=== PATIENT | female | born 1990 | race Caucasian/White ===

== ENCOUNTER 2017-01-25 12:45 | Emergency (ER) | payer SELFPAY ==
[~2017-01-25] VITALS: Ht 167.6 cm; Wt 65.9 kg
[~2017-01-25 12:45] MED LIST: BIRTH CONTRO; XANA1TAB2 PO
[2017-01-25] MEDS ORDERED: SODIUM CHLOR 0.9% 1000 ML INJ 1,000 ML IV ONE (13:01)
[2017-01-25 13:04] VITALS: BP 106/71; PULSE 146; RESP 29; TEMP 98.9; O2SAT 95
[2017-01-25] MEDS ORDERED: LORazepam 2 MG/ML VIAL IVP ONE (13:15)
[2017-01-25] MEDS ORDERED: SODIUM CHLORIDE 0.9% FLUSH 10 ML FLUSH IVF PRN (13:15)
--- NOTE | 2017-01-25 13:20 | PD ---
HPI Chief Complaint: Alcohol/Drug Intoxication Time Seen by Provider: 13:01 Travel History International Travel<30 days: No Contact w/Intl Traveler<30days: No Traveled to known affect area: No History of Present Illness HPI 26-year-old female with history of substance abuse, presents to the ER today brought in by EMS because she found by bystanders, agitated, disoriented, and they called EMS. She admits that she has been drinking alcohol, taking marijuana, and from a friend. She denies other issues or ingestions. Modifying Factors: None Associated Signs & Symptoms: Agitation, disorientation, substance use, alcohol use Risk Factors: History of substance use PFSH Past Medical History Anemia: Yes ?: Unknown Past Surgical History Tonsillectomy: Yes Social History Alcohol Use: Yes Tobacco Use: Yes Substance Use: Yes (marijuana,cocaine) Allergies-Medications (Allergen,Severity, Reaction): Coded Allergies: No Known Allergies (Unverified , 12/23/16) Reported Meds & Prescriptions Reported Meds & Active Scripts Active Reported [ contro;] Xanax (Alprazolam) 1 Mg Tab 1 Mg PO BID PRN Review of Systems ROS Limitations: Intoxication (agitated), Uncooperative Physical Exam Narrative GENERAL: Well-developed young white female patient who is agitated, mildly disoriented, spitting at officers. Awake, alert and answering questions. SKIN: Focused skin assessment warm/dry. HEAD: Atraumatic. Normocephalic. EYES: Pupils equal and round. No scleral icterus. No injection or drainage. ENT: No nasal bleeding or discharge. Mucous membranes pink and moist. NECK: Trachea midline. No JVD. CARDIOVASCULAR: Regular rate and rhythm. No murmur appreciated. RESPIRATORY: No accessory muscle use. Clear to auscultation. Breath sounds equal bilaterally. GASTROINTESTINAL: Abdomen soft, non-tender, nondistended. Hepatic and splenic margins not palpable. MUSCULOSKELETAL: No obvious deformities. No clubbing. No cyanosis. No edema. NEUROLOGICAL: Awake and alert. No obvious cranial nerve deficits. Motor grossly within normal limits. Normal speech. PSYCHIATRIC: Appropriate mood and affect; poor insight and judgment control. Data Data Last Documented VS Vital Signs Date Time Temp Pulse Resp B/P Pulse Ox O2 Delivery O2 Flow Rate FiO2 01/25/17 14:22 80 18 98 Room Air 01/25/17 14:21 98.3 108/64 Orders Complete Blood Count With Diff (01/25/17 13:01) Comprehensive Metabolic Panel (01/25/17 13:01) Urinalysis - C+S If Indicated (01/25/17 13:01) Iv Access Insert/Monitor (01/25/17 13:01) Cath For Specimen (01/25/17 13:01) Ecg Monitoring (01/25/17 13:01) Oximetry (01/25/17 13:01) Lorazepam Inj (Ativan Inj) (01/25/17 13:15) Sodium Chloride 0.9% Flush (Ns Flush) (01/25/17 13:15) Sodium Chlor 0.9% 1000 Ml Inj (Ns 1000 M (01/25/17 13:01) Drug Screen, Random Urine (01/25/17 13:01) Alcohol (Ethanol) (01/25/17 13:01) Salicylates (Aspirin) (01/25/17 13:01) Tylenol (Acetaminophen) (01/25/17 13:01) Diphenhydramine Inj (Benadryl Inj) (01/25/17 14:30) Methylprednisolone So Succ Inj (Solumedr (01/25/17 14:30) Labs Laboratory Tests Test 01/25/17 13:05 White Blood Count 10.0 TH/MM3 Red Blood Count 4.44 MIL/MM3 Hemoglobin 12.9 GM/DL Hematocrit 38.4 % Mean Corpuscular Volume 86.5 FL Mean Corpuscular Hemoglobin 29.1 PG Mean Corpuscular Hemoglobin 33.7 % Concent Red Cell Distribution Width 13.1 % Platelet Count 370 TH/MM3 Mean Platelet Volume 8.3 FL Neutrophils (%) (Auto) 66.9 % Lymphocytes (%) (Auto) 25.9 % Monocytes (%) (Auto) 5.6 % Eosinophils (%) (Auto) 0.7 % Basophils (%) (Auto) 0.9 % Neutrophils # (Auto) 6.7 TH/MM3 Lymphocytes # (Auto) 2.6 TH/MM3 Monocytes # (Auto) 0.6 TH/MM3 Eosinophils # (Auto) 0.1 TH/MM3 Basophils # (Auto) 0.1 TH/MM3 CBC Comment DIFF FINAL Differential Comment Sodium Level 141 MEQ/L Potassium Level 3.5 MEQ/L Chloride Level 106 MEQ/L Carbon Dioxide Level 23.3 MEQ/L Anion Gap 12 MEQ/L Blood Urea Nitrogen 9 MG/DL Creatinine 1.36 MG/DL Estimat Glomerular Filtration 47 ML/MIN Rate Random Glucose 115 MG/DL Calcium Level 8.7 MG/DL Total Bilirubin 0.5 MG/DL Aspartate Amino Transf 35 U/L (AST/SGOT) Alanine Aminotransferase 31 U/L (ALT/SGPT) Alkaline Phosphatase 105 U/L Total Protein 7.6 GM/DL Albumin 4.3 GM/DL Salicylates Level 2.0 MG/DL Acetaminophen Level LESS THAN 2.0 MCG/ML Ethyl Alcohol Level 11 MG/DL [facility] Medical Decision Making Medical Screen Exam Complete: Yes Emergency Medical Condition: Yes Medical Record Reviewed: Yes Interpretation(s) Laboratory Tests Test 01/25/17 13:05 Creatinine 1.36 MG/DL (0.50-1.00) Estimat Glomerular Filtration 47 ML/MIN (>89) Rate Random Glucose 115 MG/DL (74-106) Salicylates Level 2.0 MG/DL (2.8-20.0) Acetaminophen Level LESS THAN 2.0 MCG/ML (10.0-30.0) Ethyl Alcohol Level 11 MG/DL (0-5) Differential Diagnosis Substance use versus intoxication with alcohol versus metabolic abnormalities versus anxiety attack versus psychosis Narrative Course Patient was observed in the ER, and after a period of observation, she became more oriented, states that she had taken marijuana but thinks that it had been laced with other substances. She states that her and a friend had also taken it. She states that she was very anxious due to disorientation, and has PTSD and anxiety in a crowd, and when people came in to help her, she had a panic attack. She also states that EMS crews had use rubber gloves on her and that she has latex allergies. She states that she bit her tongue and is now having tongue swelling. She denies any trouble swallowing, shortness of breath , rash, facial swelling, or other symptoms. She is requesting Benadryl. Benadryl was given to her in the ER and I had also ordered her for Solu-Medrol and other medications. However, she is refusing to take Solu-Medrol or any other medications. She States that she does not want "Vistaril". She states that her primary care at given this to her in the past and she does not like it. She also states that she takes Xanax on a regular basis and had taken it today as well. At this point, she is awake, alert, oriented in the ER and able to make her own decisions. She is refusing any further care, refusing further medications. I have talked to her regarding the fact that if she was exposed to latex and is having tongue swelling, and this could be indicative of angioedema and that worsening angioedema can cause or other morbidities. Patient states understanding, states that she does not think that this is angioedema, states that she thinks she bit her tongue, and does not want further treatment. She states she has an EpiPen at home. I have talked her regarding the fact that she should get further treatment, patient states understanding, and states she wants to go home now and before I was able to get prescriptions or further discussion with her, she left AGAINST MEDICAL ADVICE. AMA: The risks of leaving against medical advice without further evaluation treatment were discussed with the patient. These risks include cardiac dysfunction, cardiac dysrhythmia, possible heart attack, possible stroke or . The patient indicated understanding of these risks and appeared to have the capacity to make this decision. Diagnosis Primary Impression: Substance abuse Additional Impression: Allergic reaction Disposition: 07 AGAINST MEDICAL ADVICE Condition: Stable Phuong Wade MD Jan 25, 2017 13:20
[2017-01-25 13:25] LABS: AUTOMATED NEUTROPHIL # 6.7 TH/MM3 (1.8-7.7); BASOPHIL # 0.1 TH/MM3 (0-0.2); BASOPHIL % 0.9 % (0.0-2.0); EOSINOPHIL # 0.1 TH/MM3 (0-0.4); EOSINOPHIL % 0.7 % (0.0-4.0); HEMATOCRIT 38.4 % (35.0-46.0); HEMO FLAGS DIFF FINAL; LYMPH % 25.9 % (9.0-44.0); LYMPHOCYTE # 2.6 TH/MM3 (1.0-4.8); MEAN CELL VOLUME 86.5 FL (80.0-100.0); MEAN CORPUSCULAR HEMOGLOBIN 29.1 PG (27.0-34.0); MEAN CORPUSCULAR HGB CONC 33.7 % (32.0-36.0); MONO % 5.6 % (0.0-8.0); NEUT % 66.9 % (16.0-70.0); PLATELET COUNT 370 TH/MM3 (150-450); RED BLOOD COUNT 4.44 MIL/MM3 (4.00-5.30); RED CELL DISTRIBUTION WIDTH 13.1 % (11.6-17.2)
[2017-01-25 13:45] LABS: ALT (GPT) 31 U/L (10-53); ANION GAP 12 MEQ/L (5-15); AST (GOT) 35 U/L (15-37); BICARBONATE 23.3 MEQ/L (21.0-32.0); BLOOD UREA NITROGEN 9 MG/DL (7-18); CHLORIDE 106 MEQ/L (98-107); GLOMERULAR FILTRATION RATE 47 ML/MIN (>89); POTASSIUM 3.5 MEQ/L (3.5-5.1); SODIUM (NA) 141 MEQ/L (136-145)
[2017-01-25 13:47] LABS: ALKALINE PHOSPHATASE 105 U/L (45-117); TOTAL BILIRUBIN ADULT 0.5 MG/DL (0.2-1.0)
[2017-01-25 13:51] LABS: ACETAMINOPHEN LESS THAN 2.0 MCG/ML (10.0-30.0)
[2017-01-25 14:21] VITALS: BP 108/64; PULSE 134; RESP 18; TEMP 98.3; O2SAT 99
[2017-01-25] MEDS ORDERED: methylPREDNISolone SOD SUCC 125 MG/2 ML VIAL IV PUSH ONE (14:30)
[2017-01-25] MEDS ORDERED: diphenhydrAMINE HCL 50 MG/ML VIAL IV PUSH ONE (14:30)
== END 2017-01-25 14:58 | disposition home or self-care (01) ==
LOC: NEPE 12:45
DX: F19.10 Other psychoactive substance abuse, uncomplicated (principal); T78.40XA Allergy, unspecified, initial encounter
CPT/HCPCS: 80053; 80307; 85025; 96374; 99285; J1200